=== PATIENT | male | born 1945 | race Caucasian/White ===

== ENCOUNTER 2022-10-26 12:50 | Outpatient (CLI) | payer MEDICARE, BC, OTHER | END 2022-10-26 12:51 | disposition home or self-care (01) | LOC: CSHWCC 12:50 | PROVIDERS: ATTEND Nurse Practitioner Family | DX: S81.002D Unspecified open wound, left knee, subsequent encounter (principal) | CPT/HCPCS: 11042; 11045; 97139; G0463; 99203 ==

== ENCOUNTER 2022-11-02 14:44 | Outpatient (CLI) | payer MEDICARE, BC, OTHER | END 2022-11-02 14:45 | disposition home or self-care (01) | LOC: CSHWCC 14:44 | PROVIDERS: ATTEND Nurse Practitioner Family | DX: S81.002D Unspecified open wound, left knee, subsequent encounter (principal); S81.001D Unspecified open wound, right knee, subsequent encounter | CPT/HCPCS: 11042; 11045 ==

== ENCOUNTER 2022-11-16 13:00 | Outpatient (CLI) | payer MEDICARE, BC, OTHER | END 2022-11-16 13:01 | disposition home or self-care (01) | LOC: CSHWCC 13:00 | PROVIDERS: ATTEND Nurse Practitioner Family | DX: S81.002D Unspecified open wound, left knee, subsequent encounter (principal); S81.001D Unspecified open wound, right knee, subsequent encounter | CPT/HCPCS: 11042 ==

== ENCOUNTER 2022-11-30 13:04 | Outpatient (CLI) | payer MEDICARE, BC, OTHER | END 2022-11-30 13:05 | disposition home or self-care (01) | LOC: CSHWCC 13:04 | PROVIDERS: ATTEND Nurse Practitioner Family | DX: S81.002D Unspecified open wound, left knee, subsequent encounter (principal); S81.001D Unspecified open wound, right knee, subsequent encounter | CPT/HCPCS: 97597 ==

== ENCOUNTER 2022-12-21 13:03 | Outpatient (CLI) | payer MEDICARE, BC, OTHER | END 2022-12-21 13:04 | disposition home or self-care (01) | LOC: CSHWCC 13:03 | PROVIDERS: ATTEND Nurse Practitioner Family | DX: S81.002D Unspecified open wound, left knee, subsequent encounter (principal) | CPT/HCPCS: 97139; G0463; 99212 ==